=== PATIENT | female | born 2000 | race Caucasian/White ===

== ENCOUNTER 2021-05-26 13:58 | Outpatient (CLI) | payer BC, SELFPAY ==
--- NOTE | 2021-05-26 | ECG_ITS ---
Measurements Intervals [place] Rate: 63 P: 61 DE: 148 QRS: 73 QRSD: 85 T: 55 QT: 369 QTc: 379 Interpretive Statements SINUS RHYTHM WITH SINUS ARRHYTHMIA POSSIBLE RIGHT VENTRICULAR CONDUCTION DELAY [RSR (QR) IN V1/V2] ABNORMAL ECG NO PREVIOUS ECG AVAILABLE FOR COMPARISON Electronically Signed On 05-26-2021 16:05:37 CDT by Arben Ruvalcaba M.D.
== END 2021-05-26 13:59 | disposition home or self-care (01) ==
PROVIDERS: PCP Pediatrics; Visit Provider Pediatrics
DX: R55 Syncope and collapse (principal); R94.31 Abnormal electrocardiogram [ECG] [EKG]
CPT/HCPCS: 93005